=== PATIENT | female | born 1955 | race Caucasian/White ===

== ENCOUNTER 2017-06-06 08:14 | Emergency (ER) | payer MEDICAID ==
[2017-06-06 10:32] VITALS: BP 147/81
== END 2017-06-06 10:32 | disposition home or self-care (01) ==
LOC: ED 08:14
DX: M25.561 Pain in right knee (principal); M25.461 Effusion, right knee; I10 Essential (primary) hypertension
CPT/HCPCS: Q0092

== ENCOUNTER 2019-11-04 02:36 | Emergency (ER) | payer OTHER, MEDICAID ==
[~2019-11-04] VITALS: Ht 157.5 cm; Wt 80.3 kg
[2019-11-04 02:47] VITALS: BP 160/65; Ht 157.5 cm; Wt 80.3 kg
== END 2019-11-04 03:19 | disposition home or self-care (01) ==
LOC: ED 02:36
DX: M75.81 Other shoulder lesions, right shoulder (principal); I10 Essential (primary) hypertension